=== PATIENT | female | born 1960 | race Caucasian/White ===

== ENCOUNTER 2016-10-14 09:59 | Inpatient (IN) | payer OTHER ==
[~2016-10-14] VITALS: Ht 154.9 cm; Wt 63.5 kg
[~2016-10-14 09:59] MED LIST: AMOX500C25 PO; CLAR500T3 PO; FERR325E14 PO; METF500T2 PO; OMEP40EC1 PO; PANT40EC PO; PRED5TAB7 PO; TRAM50TA94 PO
--- NOTE | 2016-10-14 10:19 | NUR ---
Dr. Crow evaluating patient at bedside.
--- NOTE | 2016-10-14 10:19 | NUR ---
Patient ambulated to bed 7 with family. RN evaluating patient at bedside.
--- NOTE | 2016-10-14 10:23 | NUR ---
55/F bib for evaluation of vomiting blood and bloody stools since last night. Pt states she had x2 episodes of solid stool with blood and diarrhea afterwards during the night. Pt states she was seen by PMD 09/29 and had routine labs drawn, saw her RA specialist and he told her "blood levels were low and had an infection." Pt is here today d/t blood in stool and vomiting blood. Afebile, c/o fever last night. AOX4, prydeinig speaking, ambulatory with steady gait. VSS.
[2016-10-14 10:26] VITALS: BP 134/81
[2016-10-14] MEDS ORDERED: NACL 0.9% 1,000 ML IV ONE ×3 (10:29→11:35)
[2016-10-14] MEDS ORDERED: METF850T PO (10:31)
--- NOTE | 2016-10-14 10:35 | NUR ---
Dr. Crow at bedside for rectal exam. Accompanied by nurse.
[2016-10-14 11:01] LABS: BASOPHILS % (AUTO) 0.3 % (0.0-2.0); EOSINOPHILS # (AUTO) 0.2 K/uL (0-0.4); EOSINOPHILS % (AUTO) 1.8 % (0.0-4.0); HEMATOCRIT 41.4 % (36-48); HEMOGLOBIN 13.6 g/dL (12.0-16.0); LYMPHOCYTES # (AUTO) 0.7 K/uL (2.5-16.5); LYMPHOCYTES % (AUTO) 5.9 % (20.5-51.1); MEAN CORPUSCULAR HEMOGLOBIN 28 pg (27-31); MEAN CORPUSCULAR HGB CONC 33 g/dL (33-37); MEAN CORPUSCULAR VOLUME 84 fL (80-94); MONOCYTES # (AUTO) 0.3 K/uL (0.8-1.0); MONOCYTES % (AUTO) 2.8 % (1.7-9.3); NEUTROPHILS # (AUTO) 10.8 K/uL (1.8-7.7); NEUTROPHILS % (AUTO) 89.2 % (42.2-75.2); PLATELET COUNT (AUTO) 85 K/uL (140-450); RED CELL DISTRIBUTION WIDTH 12.7 % (11.6-13.7); WHITE BLOOD COUNT (AUTO) 11.9 K/uL (4.8-10.8)
--- NOTE | 2016-10-14 11:01 | NUR ---
Patient appears to be resting comfortably in bed. VSS.
[2016-10-14 11:11] LABS: ANION GAP 16.2 (8-16); CALCIUM 8.9 mg/dL (8.5-10.1); CARBON DIOXIDE 24.7 mmol/L (21-32); CREATININE 0.9 mg/dL (0.6-1.3); POTASSIUM 3.9 mmol/L (3.5-5.1)
[2016-10-14] MEDS ORDERED: PANTOPRAZOLE 80 MG in NACL 0.9% 100 ML IV STA (11:11)
[2016-10-14] MEDS ORDERED: MORPHINE SULFATE 4 MG/ML SYR IVP ONE (11:15)
[2016-10-14] MEDS ORDERED: ONDANSETRON 4 MG/2 ML VIAL IVP ONE (11:15)
[2016-10-14 11:17] LABS: INR 1.1 (0.8-1.2); PARTIAL THROMBOPLASTIN TIME 26.6 secs (22-35.6); PROTHROMBIN TIME 11.6 secs (10.8-13.4); TOTAL BILIRUBIN 0.5 mg/dL (0.0-1.0); TOTAL PROTEIN, SERUM 8.1 g/dL (6.4-8.2)
--- NOTE | 2016-10-14 11:20 | NUR ---
Pt ambulated to restroom to provide UA. Steady gait noted.
[2016-10-14] MEDS ORDERED: PANTOPRAZOLE 40 MG INJ VIAL IVP ONE (11:24)
--- NOTE | 2016-10-14 11:34 | NUR ---
Dr. Crow made aware of accu check 340. No orders for insulin received at this time. Verbal order for another liter of NS to be given.
[2016-10-14 11:41] LABS: APPEARANCE,URINE HAZY (CLEAR); BILIRUBIN,URINE NEGATIVE (NEGATIVE); BLOOD, URINE TRACE-I (NEGATIVE); COLOR,URINE ORANGE (YELLOW); LEUKOCYTE ESTERASE ,URINE NEGATIVE (NEGATIVE); NITRITE, URINE NEGATIVE (NEGATIVE); PROTEIN,URINE TRACE (NEGATIVE); UGLUCOSE 3+ (NEGATIVE); UROBILINOGEN,URINE 0.2 EU/dL (0.2 - 1)
[2016-10-14 11:48] LABS: RBC,URINE 0-3 /HPF (0-5); WBC,URINE 0-3 /HPF (0-5)
--- NOTE | 2016-10-14 11:48 | NUR ---
patient medicated for nausea and epigastric pain. at bedside. monitored
[2016-10-14 11:49] LABS: BACTERIA,URINE OCCASSIONAL /HPF (None Seen)
[2016-10-14] MEDS ORDERED: NACL 0.9% 1,000 ML IV SCH (11:52)
[2016-10-14] MEDS ORDERED: HYDROcodone/APAP 7.5/325 MG 1 TAB PO PRN (11:55)
[2016-10-14] MEDS ORDERED: DOCUSATE SODIUM 100 MG GELCAP PO PRN (11:55)
[2016-10-14] MEDS ORDERED: ONDANSETRON 4 MG/2 ML VIAL IM/IVP PRN (11:55)
[2016-10-14] MEDS ORDERED: MORPHINE SULFATE 2 MG/ML SYR IVP PRN (11:55)
--- NOTE | 2016-10-14 12:05 | NUR ---
X-Ray at bedside.
--- NOTE | 2016-10-14 12:28 | NUR ---
Patient will be admitted to care of Dr. Madison. Admited to Tele. Will go to room 119-B. Belongings list completed. Report to Carmelina MCKNIGHT.
--- NOTE | 2016-10-14 12:34 | NUR ---
Pt transferred to Tele 119-B via [facility] on cardiac monitoring accompanied by myself and EMT Jennie. All belongings given to . VSS.
[2016-10-14 12:41] LABS: AMPHETAMINE, URINE NEG. ng/ml (NEG <=1000); BARBITURATE, URINE NEG. ng/ml (NEG <=200); BENZODIAZEPINE, URINE NEG. ng/mL (NEG <=200); CANNABINOID, URINE NEG. ng/mL (NEG <=50); COCAINE, URINE NEG. ng/mL (NEG <=300); OPIATE, URINE NEG. ng/mL (NEG <=2000); PHENCYCLIDINE SCREEN,URINE NEG. ng/mL (NEG <=25)
[2016-10-14] MEDS ORDERED: DEXTROSE 50% 50 ML SYR IVP PRN (12:45)
[2016-10-14 12:48] LABS: CHOL/HDL RATIO 3.7 (1-4.5); FREE T4 (FREE THYROXINE) 1.18 ng/dL (0.76-1.46); MAGNESIUM 1.9 mg/dL (1.8-2.4); PHOSPHORUS 2.9 mg/dL (2.5-4.9); THYROID STIMULATING HORMONE 0.39 uIU/mL (0.34-3.74)
[2016-10-14 13:00] VITALS: BP 120/70
--- NOTE | 2016-10-14 13:00 | NUR ---
RECEIVED PT ON FLOOR VIA GURNEY, PT IS A/OX4, AMBULATORY, SKIN IS INTACT, IV IS ON THE LEFT AC, PATENT, INTACT, FLUSHING WELL, NO S/S OF RESPIRATORY DISTRESS OR DISCOMFORT NOTED, SAFETY/FALL PRECAUTIONS ARE IN PLACE, ORIENTED PT TO ROOM, DISCUSSED PLAN OF CARE WITH PT, PT VERBALIZED UNDERSTANDING, PT'S IS AT BEDSIDE, CALL LIGHT IS WITHIN REACH, CALL LIGHT WITHIN REACH.
[2016-10-14] MEDS: DEXT 5% / NACL 0.9% 1,000 ML IV SCH ×2 (13:40→23:40)
--- NOTE | 2016-10-14 15:10 | NUR ---
PT RESTING IN BED IN A SEMI SHUKLA POSITION, IS AT BEDSIDE, CALL LIGHT IS WITHIN REACH.
[2016-10-14 16:00] VITALS: BP 120/66
[2016-10-14] MEDS: BLOOD GLUCOSE MONITORING 1 DEV DEV FS SCH ×2 (16:59→21:38)
--- NOTE | 2016-10-14 17:00 | NUR ---
PT RESTING IN BED, NO S/S OF RESPIRATORY DISTRESS OR DISCOMFORT NOTED, DAUGHTER IS AT BEDSIDE, CALL LIGHT WITHIN REACH.
[2016-10-14] MEDS: INSULIN LISPRO SLIDING SCALE 100 UNITS/ML VIAL SUBQ PRN (17:44)
--- NOTE | 2016-10-14 19:10 | NUR ---
PT ENDORSED TO JUAN LUIS OVALLE FOR CONTINUITY OF CARE, PT STABLE AT THIS TIME. DR. SHAFFER IS AT PT BEDSIDE TALKING WITH PT.
--- NOTE | 2016-10-14 19:15 | NUR ---
WILL CONTINUE WITH PATIENT CARE AT THIS TIME.
[2016-10-14 20:00] VITALS: BP 130/68
[2016-10-14] MEDS: INSULIN DETEMIR 100 UNITS/ML 10 ML VIAL SUBQ SCH (21:00)
--- NOTE | 2016-10-14 21:15 | NUR ---
PT IS SITTING IN BED, FAMILY IS AT BEDSIDE, CALL LIGHT IS WITHIN REACH.
--- NOTE | 2016-10-14 23:12 | NUR ---
REPORT GIVEN TO CHARGE NURSE FOR CONTINUITY OF CARE, PT STABLE AT THIS TIME.
--- NOTE | 2016-10-14 23:12 | NUR ---
RECEIVED REPORT FROM JUAN LUIS ALEXANDER FOR CONTINUITY PF CARE.
[2016-10-15] VITALS: BP 105/40
--- NOTE | 2016-10-15 | NUR ---
V/S TAKEN PT HAS A TEMP OF 100.5 WILL MEDICATE WITH TYLENOL. COOLING MEASURES APPLIED TO BILAT AXILLARY. WILL CONTINUEUE TO MONITOR.
[2016-10-15] MEDS: ACETAMINOPHEN 325 MG TAB PO PRN ×2 (00:35→13:02)
--- NOTE | 2016-10-15 00:35 | NUR ---
MEDICATED WITH TYLENOL 650 MG PO WITH SIPS OF WATER.
--- NOTE | 2016-10-15 02:00 | NUR ---
RECHECKED TEMP 99.5 AFTER COOLING MEASURE AND TYLENOL
[2016-10-15 04:00] VITALS: BP 100/56
--- NOTE | 2016-10-15 04:00 | NUR ---
V/S TAKEN TEMP 99, NO C/O PAIN,REINFORCED NPO STATUS
--- NOTE | 2016-10-15 06:00 | NUR ---
SEQUENTIAL STOCKINGS NOT APPLIED DUE TO PT AMBULATES TO BR.
[2016-10-15] MEDS: BLOOD GLUCOSE MONITORING 1 DEV DEV FS SCH ×4 (06:28→20:31)
--- NOTE | 2016-10-15 06:30 | NUR ---
BS 179 NOT COVERED DUE TO PT IS NPO FOR EGD THIS MORNING.
[2016-10-15 06:56] LABS: BASOPHILS # (AUTO) 0.1 K/uL (0.00-0.22); BASOPHILS % (AUTO) 1.1 % (0.0-2.0); EOSINOPHILS % (AUTO) 0.6 % (0.0-4.0); HEMATOCRIT 36.5 % (36-48); HEMOGLOBIN 11.8 g/dL (12.0-16.0); LYMPHOCYTES # (AUTO) 1.6 K/uL (2.5-16.5); LYMPHOCYTES % (AUTO) 24.4 % (20.5-51.1); MEAN CORPUSCULAR HEMOGLOBIN 27 pg (27-31); MEAN CORPUSCULAR HGB CONC 32 g/dL (33-37); MEAN CORPUSCULAR VOLUME 84 fL (80-94); MONOCYTES # (AUTO) 0.6 K/uL (0.8-1.0); MONOCYTES % (AUTO) 8.7 % (1.7-9.3); NEUTROPHILS # (AUTO) 4.3 K/uL (1.8-7.7); NEUTROPHILS % (AUTO) 65.2 % (42.2-75.2); PLATELET COUNT (AUTO) 93 K/uL (140-450); RED BLOOD CELL COUNT(AUTO) 4.33 MIL/uL (4.20-5.40); RED CELL DISTRIBUTION WIDTH 12.6 % (11.6-13.7); WHITE BLOOD COUNT (AUTO) 6.6 K/uL (4.8-10.8)
--- NOTE | 2016-10-15 07:10 | NUR ---
RECEIVED REPORT FROM DALI, CHARGE NURSE, PT IS A/OX4, AMBULATORY, SKIN IS INTACT, IV IS ON THE LEFT AC, PATENT, INTACT, FLUSHING WELL, NO S/S OF RESPIRATORY DISTRESS OR DISCOMFORT NOTED, SAFETY/FALL PRECAUTIONS ARE IN PLACE, DISCUSSED PLAN OF CARE WITH PT, PT VERBALIZED UNDERSTANDING, CALL LIGHT IS WITHIN REACH, CALL LIGHT WITHIN REACH.
[2016-10-15 07:17] LABS: ANION GAP 10.3 (8-16); CALCIUM 7.4 mg/dL (8.5-10.1); CARBON DIOXIDE 24.1 mmol/L (21-32); CREATININE 0.6 mg/dL (0.6-1.3); POTASSIUM 3.4 mmol/L (3.5-5.1)
[2016-10-15 07:23] LABS: MAGNESIUM 1.6 mg/dL (1.8-2.4); PHOSPHORUS 2.4 mg/dL (2.5-4.9)
[2016-10-15 08:00] VITALS: BP 120/64
[2016-10-15] MEDS: metFORMIN 850 MG TAB PO SCH ×2 (08:00→16:43)
--- NOTE | 2016-10-15 08:09 | NUR ---
REPORT GIVEN TO AM NURSE ALEXANDER
--- NOTE | 2016-10-15 09:01 | NUR ---
PT OFF UNIT TAKEN TO OR TO HAVE EGD DONE.
[2016-10-15] MEDS ORDERED: MIDAZOLAM 2 MG/2 ML VIAL ONE (09:13)
[2016-10-15] MEDS ORDERED: diphenhydrAMINE 50 MG/ML VIAL ONE (09:13)
[2016-10-15] MEDS ORDERED: fentaNYL 0.05 MG/ML VIAL ONE (09:13)
[2016-10-15 09:25] LABS: T4 (THYROXINE) 8.9 ug/dL (4.5-12.0)
[2016-10-15] MEDS: DEXT 5% / NACL 0.9% 1,000 ML IV SCH ×2 (09:40→19:51)
--- NOTE | 2016-10-15 09:42 | NUR ---
PT RETURNED FROM EGD PROCEDURE, PT IS A/OX4, NO S/S OF RESPIRATORY DISTRESS OR DISCOMFORT NOTED, VS ARE 98/56, HR: 83, O2:96%, RESP:16, TEMP: 98.6 CALL LIGHT WITHIN REACH, WILL CONTINUE TO MONITOR.
[2016-10-15] MEDS ORDERED: MIDAZOLAM 2 MG/2 ML VIAL IVP ONE (09:50)
[2016-10-15] MEDS ORDERED: fentaNYL 0.05 MG/ML VIAL IVP ONE (09:50)
[2016-10-15] MEDS ORDERED: SUCRALFATE 1 GM TAB PO SCH (10:10)
--- NOTE | 2016-10-15 11:31 | NUR ---
PATIENT HAS BEEN SCREENED AND CATEGORIZED MODERATE NUTRITION RISK. PATIENT WILL BE SEEN WITHIN 3-5 DAYS OF ADMISSION. 10/17/16 - 10/19/16 JORDAN ANTHONY MBA, RD
--- NOTE | 2016-10-15 11:35 | NUR ---
PT IS RESTING IN BED TALKING TO HER DAUGHTER WHO IS AT BEDSIDE, CALL LIGHT IS WITHIN REACH.
[2016-10-15 12:00] VITALS: BP 124/70
[2016-10-15] MEDS: INSULIN LISPRO SLIDING SCALE 100 UNITS/ML VIAL SUBQ PRN (12:41)
[2016-10-15] MEDS ORDERED: MAG SULF 2000 MG/WATER PREMIX 50 ML IV SCH (12:45)
--- NOTE | 2016-10-15 13:02 | NUR ---
PATIENT RESTING IN BED, PT COMPLAINED OF A HEADACHE 5/10, WILL MEDICATE AT THIS TIME.
[2016-10-15] MEDS ORDERED: POTASSIUM PHOSPHATE 15 MM in NACL 0.9% 250 ML IV SCH (15:00)
--- NOTE | 2016-10-15 15:00 | NUR ---
PT IS RESTING IN BED AT THIS TIME, DAUGHTER IS AT PATIENT BEDSIDE.
[2016-10-15 16:00] VITALS: BP 96/51
--- NOTE | 2016-10-15 16:30 | NUR ---
PT IS SLEEPING IN BED AT THIS TIME, PATIENT'S DAUGHTER IS AT BEDSIDE, CALL LIGHT WITHIN REACH.
[2016-10-15 16:56] LABS: HEMOGLOBIN A1C 7.2 % (4.8-5.6)
--- NOTE | 2016-10-15 18:42 | NUR ---
PT IS SITTING IN BED, FAMILY IS AT BEDSIDE, CALL LIGHT WITHIN REACH.
--- NOTE | 2016-10-15 19:25 | NUR ---
ENDORSED PT TO JUAN LUIS VARGAS. FOR CONTINUITY OF CARE, PT STABLE AT THIS TIME.
--- NOTE | 2016-10-15 19:30 | NUR ---
RECEIVED REPORT FROM DAY RN AT BEDSIDE, PATIENT IS AAO X4 ON O2 @1L VIA NC, NO SOB OR SIGN OF DISTRESS, IV PATENT AND INTACT, PT DENIES PAIN AT THIS TIME, SKIN INTACT, DISCUSSED PLAN OF CARE WITH PATIENT, PT VERBALIZED UNDERSTANDING, SAFETY MEASURES CHECKED, CALL LIGHT WITHIN REACH WILL CONTINUE TO MONITOR.
[2016-10-15 20:00] VITALS: BP 97/65
--- NOTE | 2016-10-15 20:30 | NUR ---
PT RESTING IN BED, PM MEDS ADMINISTERED, PT TOLERATED WELL, PT WANTED O2 OFF, REMOVED AND O2 SATS REMAINED AT 98% ON ROOM AIR, REMINDED PATIENT TO USE CALL LIGHT IF SHE FEELS SHORT OF BREATH, PT VERBALIZED UNDERSTANDING. CALL LIGHT WITH REACH. WILL CONTINUE TO MONITOR.
[2016-10-15] MEDS: SUCRALFATE 1 GM TAB PO SCH (20:31)
[2016-10-15] MEDS: PANTOPRAZOLE 40 MG TABEC PO SCH (20:31)
[2016-10-15] MEDS: INSULIN DETEMIR 100 UNITS/ML 10 ML VIAL SUBQ SCH (20:32)
--- NOTE | 2016-10-15 22:30 | NUR ---
PT RESTING IN BED, NO SIGN OF DISTRESS, CALL LIGHT WITHIN REACH. WILL CONTINUE TO MONITOR.
[2016-10-16] VITALS: BP 100/55
--- NOTE | 2016-10-16 | NUR ---
VITAL SIGNS STABLE, NO SIGN OF DISTRESS,CALL LIGHT WITHIN REACH. WILL CONTINUE TO MONITOR
--- NOTE | 2016-10-16 02:00 | NUR ---
PT SLEEPING, NO SIGN OF DISTRESS, CALL LIGHT WITHIN REACH. WILL CONTINUE TO MONITOR
[2016-10-16 04:00] VITALS: BP 112/61
--- NOTE | 2016-10-16 04:30 | NUR ---
VITAL SIGNS STABLE, NO SIGN OF DISTRESS CALL LIGHT WITHIN REACH. WILL CONTINUE TO MONITOR
[2016-10-16] MEDS: DEXT 5% / NACL 0.9% 1,000 ML IV SCH (05:48)
[2016-10-16 06:08] LABS: HEMATOCRIT 35.2 % (36-48); HEMOGLOBIN 11.6 g/dL (12.0-16.0); MEAN CORPUSCULAR HEMOGLOBIN 28 pg (27-31); MEAN CORPUSCULAR HGB CONC 33 g/dL (33-37); MEAN CORPUSCULAR VOLUME 84 fL (80-94); PLATELET COUNT (AUTO) 86 K/uL (140-450); RED BLOOD CELL COUNT(AUTO) 4.19 MIL/uL (4.20-5.40); RED CELL DISTRIBUTION WIDTH 12.6 % (11.6-13.7); WHITE BLOOD COUNT (AUTO) 4.2 K/uL (4.8-10.8)
[2016-10-16] MEDS: INSULIN LISPRO SLIDING SCALE 100 UNITS/ML VIAL SUBQ PRN (06:22)
[2016-10-16] MEDS: BLOOD GLUCOSE MONITORING 1 DEV DEV FS SCH ×2 (06:22→11:55)
[2016-10-16 06:27] LABS: ANION GAP 9.8 (8-16); CALCIUM 7.3 mg/dL (8.5-10.1); CREATININE 0.6 mg/dL (0.6-1.3); POTASSIUM 3.8 mmol/L (3.5-5.1)
[2016-10-16 06:32] LABS: MAGNESIUM 1.9 mg/dL (1.8-2.4); PHOSPHORUS 3.2 mg/dL (2.5-4.9)
[2016-10-16 07:02] LABS: BAND % (MANUAL) 3 % (0-8); EOSINOPHILS % (MANUAL) 1 % (0-4); LYMPHOCYTES % (MANUAL) 34 % (20-46); MONOCYTES % (MANUAL) 8 % (5-12); NEUTROPHILS % (MANUAL) 54 (43-65)
--- NOTE | 2016-10-16 07:20 | NUR ---
ENDORSED PATIENT TO DAY RN AT BEDSIDE, PATIENT IN STABLE CONDITION
--- NOTE | 2016-10-16 07:25 | NUR ---
RECEIVED REPORT FROM JUAN LUIS VARGAS, PT IS SITTING IN BED, A/OX4, AMBULATORY, SKIN IS INTACT, IV IS ON THE LEFT AC, PATENT, INTACT, FLUSHING WELL, NO S/S OF RESPIRATORY DISTRESS OR DISCOMFORT NOTED, SAFETY/FALL PRECAUTIONS ARE IN PLACE, DISCUSSED PLAN OF CARE WITH PT, PT VERBALIZED UNDERSTANDING, CALL LIGHT IS WITHIN REACH, CALL LIGHT WITHIN REACH.
[2016-10-16 08:00] VITALS: BP 99/54
[2016-10-16] MEDS: metFORMIN 850 MG TAB PO SCH (08:28)
[2016-10-16] MEDS: SUCRALFATE 1 GM TAB PO SCH (08:28)
--- NOTE | 2016-10-16 08:28 | NUR ---
DUE MEDICATIONS GIVEN, PT TOLERATED WELL, CALL LIGHT WITHIN REACH.
[2016-10-16] MEDS: PANTOPRAZOLE 40 MG TABEC PO SCH (08:29)
[2016-10-16] MEDS ORDERED: LACTULOSE 20 GM/30 ML UDC PO SCH (09:00)
--- NOTE | 2016-10-16 11:20 | NUR ---
PT IS RESTING IN BED WATCHING TV, DAUGHTER IS AT PT BEDSIDE, CALL LIGHT WITHIN REACH.
[2016-10-16 12:00] VITALS: BP 110/60
--- NOTE | 2016-10-16 13:30 | NUR ---
PT IS RESTING IN BED, NO S/S OF RESPIRATORY DISTRESS OR DISCOMFORT NOTED, CALL LIGHT WITHIN REACH.
[2016-10-16] MEDS ORDERED: BLOO1EAC40 MC (13:52)
[2016-10-16] MEDS ORDERED: SUCR1TAB35 PO (13:52)
[2016-10-16] MEDS ORDERED: LANC-947 MC (13:52)
[2016-10-16] MEDS ORDERED: METF850T PO (13:52)
[2016-10-16] MEDS ORDERED: BLOO1STR10 FS (13:52)
[2016-10-16] MEDS ORDERED: INSU-800 MC (13:52)
[2016-10-16] MEDS ORDERED: PANT40EC28 PO (13:52)
[2016-10-16] MEDS ORDERED: LEVEMIR SUBQ (13:52)
--- NOTE | 2016-10-16 15:30 | NUR ---
RESIDENT DOCTOR IN ROOM SPEAKING WITH PT DISCUSSING DISCHARGE INSTRUCTIONS.
--- NOTE | 2016-10-16 16:00 | NUR ---
DISCHARGE INSTRUCTIONS WERE GIVEN TO PT ON FOLLOW UP APPOINTMENTS AND MEDICATIONS SHE WILL NEED TO BE TAKING, ID WRIST BAND REMOVED, IV REMOVED, CATHETER TIP INTACT, PT STABLE UPON DISCHARGE ACCOMPANIED BY FAMILY.
--- NOTE | 2016-10-17 14:42 | NUR ---
CM NOTE RETRO REVIEW FAXED TO [facility] / FAX# [phone], ATTN: AUGUST #[phone]
== END 2016-10-16 16:00 | disposition home or self-care (01) | DRG 241 ==
LOC: MED 09:59 → MTU 11:52
PROVIDERS: ADMIT Family Medicine; ATTEND Family Medicine
PROC: 0DB68ZX Excision of Stomach, Via Natural or Artificial Opening Endoscopic, Diagnostic (ICD-10-PCS; principal; 2016-10-15 09:00)
DX: K25.4 Chronic or unspecified gastric ulcer with hemorrhage (principal); N17.0 Acute kidney failure with tubular necrosis; D69.3 Immune thrombocytopenic purpura; D69.6 Thrombocytopenia, unspecified; E11.65 Type 2 diabetes mellitus with hyperglycemia; E11.51 Type 2 diabetes mellitus with diabetic peripheral angiopathy without gangrene; E83.42 Hypomagnesemia; T37.0X5A Adverse effect of sulfonamides, initial encounter; T39.315A Adverse effect of propionic acid derivatives, initial encounter; E87.6 Hypokalemia; E83.39 Other disorders of phosphorus metabolism; K50.90 Crohn's disease, unspecified, without complications; D72.829 Elevated white blood cell count, unspecified; E66.9 Obesity, unspecified; M06.9 Rheumatoid arthritis, unspecified; Z87.11 Personal history of peptic ulcer disease; Z98.51 Tubal ligation status; Z56.0 Unemployment, unspecified; Z68.26 Body mass index [BMI] 26.0-26.9, adult
CPT/HCPCS: 36415; 71010; 80048; 80053; 80305; 81001; 82150; 82272; 82948; 83036; 83690; 83735; 83880; 84100; 84436; 84439; 84443; 84479; 85025; 85610; 85730; 86677; 86886; 86900; 86901; 87081; 93005; 93925; 93970; 96361; 96374; 96375; 99285; C9113; J1200; J1815; J2250; J2270; J2405; J3010; J3475; J7030; J7042; Q0092

== ENCOUNTER 2016-12-17 21:46 | Emergency (ER) | payer OTHER ==
[~2016-12-17] VITALS: Ht 154.9 cm; Wt 62.1 kg
[~2016-12-17 21:46] MED LIST changes: -AMOX500C25 PO; +BLOO1EAC40 MC; +BLOO1STR10 FS; -CLAR500T3 PO; -FERR325E14 PO; +INSU-800 MC; +LANC-947 MC; +LEVEMIR SUBQ; -METF500T2 PO; +METF850T PO; -OMEP40EC1 PO; -PANT40EC PO; +PANT40EC28 PO; -PRED5TAB7 PO; +SUCR1TAB56 PO; -TRAM50TA94 PO
[2016-12-17 21:48] VITALS: BP 133/79
--- NOTE | 2016-12-17 22:00 | NUR ---
AMBULATED TO ER BED 3
--- NOTE | 2016-12-17 22:03 | NUR ---
PATIENT PRESENTS TO ED WITH C/O NOSEBLEED . PT DENIES N/V/D; SKIN IS PINK/WARM/DRY; AAOX4 WITH EVEN AND STEADY GAIT; LUNGS CLEAR BL; HR EVEN AND REGULAR; PT DENIES ANY FEVER, CP, SOB, OR COUGH AT THIS TIME; PATIENT STATES PAIN OF 0/10 AT THIS TIME; VSS; PATIENT POSITIONED FOR COMFORT; HOB ELEVATED; BEDRAILS UP X2; BED DOWN. ER MD MADE AWARE OF PT STATUS.
--- NOTE | 2016-12-17 22:06 | NUR ---
Patient being evaluated by physician at bedside.
--- NOTE | 2016-12-17 22:08 | NUR ---
DR MACKAY PLACE NASAL TRUMPET IN RT NARE. PT TOLERATED WELL.
[2016-12-17 22:29] VITALS: BP 127/78
== END 2016-12-17 22:29 | disposition home or self-care (01) ==
LOC: MED 21:46
DX: R04.0 Epistaxis (principal); E11.9 Type 2 diabetes mellitus without complications; I10 Essential (primary) hypertension; Z79.899 Other long term (current) drug therapy; Z79.84 Long term (current) use of oral hypoglycemic drugs
CPT/HCPCS: 30901; 99284

== ENCOUNTER 2016-12-20 19:12 | Inpatient (IN) | payer OTHER ==
[~2016-12-20] VITALS: Ht 154.9 cm; Wt 62.1 kg
[2016-12-20 19:43] VITALS: BP 121/77
--- NOTE | 2016-12-20 20:52 | NUR ---
PT TAKEN TO BED 6
--- NOTE | 2016-12-20 21:08 | NUR ---
Dr. Pratt evaluating patient at bedside.
--- NOTE | 2016-12-20 21:11 | NUR ---
56/F sent from PMD for evaluation of abnormal labs. Pt c/o epistaxis on Monday, 3 days ago and was seen by PMD Monday. Pt called for results today; platelet level of 6 and instructed to go to ER for further evaluation. Pt denies pain. Denies N/V/D. Denies s/s of UTI. Skin warm and dry, normal in color for ethnicity. AOX4, clear speech, vietnamese speaking. Pt placed in a gown, placed on sheep farm worker, pulse oximetry, and blood pressure monitoring. VSS. Placed in position of comfort. Warm blanket provided. All needs addressed. Family at bedside.
[2016-12-20 21:45] LABS: BASOPHILS # (AUTO) 0.4 K/uL (0.00-0.22); EOSINOPHILS # (AUTO) 0.2 K/uL (0-0.4); HEMATOCRIT 39.8 % (36-48); LYMPHOCYTES # (AUTO) 2.7 K/uL (2.5-16.5); MEAN CORPUSCULAR HEMOGLOBIN 27 pg (27-31); MEAN CORPUSCULAR HGB CONC 33 g/dL (33-37); MEAN CORPUSCULAR VOLUME 84 fL (80-94); MONOCYTES # (AUTO) 0.6 K/uL (0.8-1.0); NEUTROPHILS # (AUTO) 2.2 K/uL (1.8-7.7); RED BLOOD CELL COUNT(AUTO) 4.76 MIL/uL (4.20-5.40); RED CELL DISTRIBUTION WIDTH 12.3 % (11.6-13.7); WHITE BLOOD COUNT (AUTO) 6.1 K/uL (4.8-10.8)
[2016-12-20 21:51] LABS: PLATELET COUNT (AUTO) 3 K/uL (140-450)
[2016-12-20 21:59] LABS: ANION GAP 10.8 (8-16); CARBON DIOXIDE 28.1 mmol/L (21-32); CREATININE 0.5 mg/dL (0.6-1.3); POTASSIUM 3.9 mmol/L (3.5-5.1)
[2016-12-20 22:04] LABS: ALBUMIN 4.2 g/dL (3.4-5.0); BILIRUBIN,DIRECT 0.1 mg/dL (0.0-0.3); TOTAL BILIRUBIN 0.3 mg/dL (0.0-1.0)
[2016-12-20 22:33] LABS: PROTHROMBIN TIME 10.8 secs (10.8-13.4)
[2016-12-20] MEDS ORDERED: MORPHINE SULFATE 2 MG/ML SYR IVP PRN (22:45)
[2016-12-20] MEDS ORDERED: DOCUSATE SODIUM 100 MG GELCAP PO PRN (22:45)
[2016-12-20] MEDS ORDERED: ACETAMINOPHEN 325 MG TAB PO PRN (22:45)
[2016-12-20] MEDS: NACL 0.9% 1,000 ML IV SCH (22:45)
[2016-12-20] MEDS ORDERED: HYDROcodone/APAP 7.5/325 MG 1 TAB PO PRN (22:45)
[2016-12-20] MEDS ORDERED: ONDANSETRON 4 MG/2 ML VIAL IM/IVP PRN (22:45)
[2016-12-20] MEDS ORDERED: OMEP20TC12 PO (22:46)
[2016-12-20] MEDS ORDERED: ADAL40KI1 SUBQ (22:46)
--- NOTE | 2016-12-20 22:58 | NUR ---
X-Ray at bedside.
--- NOTE | 2016-12-20 23:09 | NUR ---
Patient will be admitted to care of [facility]. Admited to Tele Will go to room 121-B. Belongings list completed. Report to Radha MCKNIGHT.
--- NOTE | 2016-12-20 23:15 | NUR ---
Pt transferred to Tele 121-B on cotton weigher operator via gurney accompanied by EMT Maribel and myself.
--- NOTE | 2016-12-20 23:20 | NUR ---
Admitted from ER TO TELEMETRY UNIT , with chief complaint of MD IN THE CLINIC TOLD HER PLATELET WENT DOWN , 56 y/o ,Female, Cooperative, AWAKE, A/O X4 GEORGIAN SPEAKING, OFFICE SERVICES CLERK ARTHUR, #[id number] ASSISTED IN INTERVIEWING PATIENT FOR ADMISSION. RESPIRATION EVEN AND UNLABORED. IV SALINE LOCK AT THE LEFT HAND G20, PATENT AND INTACT. HEAD TO TO ASSESSMENT DONE WITH CHARGE NURSE DALI, SKIN INTACT. NOTED 2ND TOE OF THE RIGHT AND LEFT FOOT, TOE NAILS WERE CUT VERY SHORT, NOTED SMALL AMOUNT OF DRIED BLOOD ON BOTH TOES. ADVISED PATIENT NOT TO CUT TOE NAILS VERY SHORT BECAUSE SHE IS DIABETIC. PLAN OF CARE DISCUSSED WITH PATIENT AND DAUGHTER. VERBALIZED UNDERSTANDING. DENIES PAIN 0/10. SR ON TELE MONITORING.oriented to call light, bed, phone,television, bathroom, smoking policy,visiting hours, procedures, ID bracelet on. Belongings list checked.
[2016-12-20] MEDS ORDERED: DEXTROSE 50% 50 ML SYR IVP PRN (23:25)
[2016-12-20 23:30] LABS: APPEARANCE,URINE CLEAR (CLEAR); BILIRUBIN,URINE NEGATIVE (NEGATIVE); BLOOD, URINE NEGATIVE (NEGATIVE); COLOR,URINE YELLOW (YELLOW); LEUKOCYTE ESTERASE ,URINE TRACE (NEGATIVE); NITRITE, URINE NEGATIVE (NEGATIVE); UGLUCOSE NEGATIVE (NEGATIVE)
[2016-12-20 23:36] LABS: BARBITURATE, URINE NEG. ng/ml (NEG <=200); BENZODIAZEPINE, URINE NEG. ng/mL (NEG <=200); CANNABINOID, URINE NEG. ng/mL (NEG <=50); COCAINE, URINE NEG. ng/mL (NEG <=300); OPIATE, URINE NEG. ng/mL (NEG <=2000); PHENCYCLIDINE SCREEN,URINE NEG. ng/mL (NEG <=25)
[2016-12-20 23:55] LABS: RBC,URINE 0-5 (RARE) /HPF (0-5); WBC,URINE 0-5 (RARE) /HPF (0-5)
[2016-12-20 23:58] LABS: CHOL/HDL RATIO 5.7 (1-4.5); PHOSPHORUS 4.3 mg/dL (2.5-4.9); THYROID STIMULATING HORMONE 3.92 uIU/mL (0.34-3.74)
[2016-12-21] VITALS: BP 129/73
--- NOTE | 2016-12-21 00:19 | NUR ---
Patient's Plan of Care was discussed and reviewed with MEDICAL BILLING SPECIALIST: JUAN C MCDONALD
--- NOTE | 2016-12-21 00:30 | NUR ---
PATIENT SIGNED CONSENT, ABLE TO UNDERSTAND BLOOD TRANSFUSION ADMINISTRATION PER EXPLAINED BY ARTHUR #[id number] DURING ADMISSION.
[2016-12-21] MEDS: NACL 0.9% 1,000 ML IV SCH ×2 (01:18→15:56)
[2016-12-21 04:00] VITALS: BP 125/69
--- NOTE | 2016-12-21 04:20 | NUR ---
PLATELETS LEVEL - 3, PHERESIS PLATELETS TRANSFUSION STARTED. WILL MONITOR FOR ANY ALLERGIC REACTION.
--- NOTE | 2016-12-21 05:30 | NUR ---
TRANSFUSION COMPLETED, NO ALLERGIC REACTION NOTED.
[2016-12-21] MEDS: BLOOD GLUCOSE MONITORING 1 DEV DEV FS SCH ×4 (06:14→21:43)
--- NOTE | 2016-12-21 07:02 | NUR ---
CONDITION REMAIN STABLE. WILL ENDORSE TO AM NURSE FOR CONTINUITY OF CARE.
--- NOTE | 2016-12-21 07:03 | NUR ---
RECEIVED REPORT FROM REFRACTORY REPAIRER NURSE AT BEDSIDE FOR CONTINUITY OF CARE. PT IS AWAKE AND ORIENTED. INTRODUCED SELF AND UPDATED BOARD. WILL CONTINUE CURRENT PLAN OF CARE AND MONITOR PT.
[2016-12-21 07:58] VITALS: BP 121/74
[2016-12-21] MEDS: LACTOBACILLUS RHAMNOSUS GG 1 EACH CAP PO SCH (08:44)
[2016-12-21] MEDS ORDERED: metFORMIN 850 MG TAB PO SCH (08:58)
[2016-12-21] MEDS: SUCRALFATE 1 GM TAB PO SCH ×4 (09:13→21:43)
--- NOTE | 2016-12-21 09:22 | NUR ---
PATIENT HAS BEEN SCREENED AND CATEGORIZED HIGH NUTRITION RISK. PATIENT WILL BE SEEN WITHIN 1-2 DAYS OF ADMISSION. 12/21/16-12/22/[address]
[2016-12-21] MEDS ORDERED: DEXAMETHASONE 4 MG/ML VIAL IVP SCH (09:42)
[2016-12-21 10:07] LABS: BASOPHILS # (AUTO) 0.1 K/uL (0.00-0.22); EOSINOPHILS # (AUTO) 0.1 K/uL (0-0.4); EOSINOPHILS % (AUTO) 0.9 % (0.0-4.0); HEMATOCRIT 38.5 % (36-48); HEMOGLOBIN 12.7 g/dL (12.0-16.0); LYMPHOCYTES # (AUTO) 1.1 K/uL (2.5-16.5); LYMPHOCYTES % (AUTO) 16.4 % (20.5-51.1); MEAN CORPUSCULAR HEMOGLOBIN 28 pg (27-31); MEAN CORPUSCULAR HGB CONC 33 g/dL (33-37); MEAN CORPUSCULAR VOLUME 84 fL (80-94); MONOCYTES # (AUTO) 0.5 K/uL (0.8-1.0); MONOCYTES % (AUTO) 6.6 % (1.7-9.3); NEUTROPHILS % (AUTO) 74.1 % (42.2-75.2); RED BLOOD CELL COUNT(AUTO) 4.58 MIL/uL (4.20-5.40); RED CELL DISTRIBUTION WIDTH 12.3 % (11.6-13.7); WHITE BLOOD COUNT (AUTO) 6.8 K/uL (4.8-10.8)
[2016-12-21 10:18] LABS: PLATELET COUNT (AUTO) 8 K/uL (140-450)
--- NOTE | 2016-12-21 11:25 | NUR ---
12/21/16 RD INITIAL ASSESSMENT COMPLETED PLEASE REFER TO NUTRITION ASSESSMENT UNDER CARE ACTIVITY FOR ESTIMATED NUTRITIONAL NEEDS. 1. CONTINUE 60G CONSISTENT CARBOHYDRATE DIET 2. PROVIDE NUTRITION THERAPY EDUCATION NEEDED 3. RD TO FOLLOW-UP 5-7 DAYS, LOW RISK NICA EPREZ RD
--- NOTE | 2016-12-21 11:30 | NUR ---
CHECKED ON PT IN ROOM. DAUGHTER AT BEDSIDE. DR. HUERTAS CAME IN AND SAW PT. DISCUSSION OF CARE WAS MADE. PT AND DAUGHTER VERBALIZED UNDERSTANDING. PT HAS NO COMPLAINTS AT THIS TIME WILL CONTINUE TO MONITOR.
[2016-12-21 12:00] VITALS: BP 98/61
--- NOTE | 2016-12-21 13:55 | NUR ---
CM NOTE INITIAL REVIEW FAXED TO [facility] / FAX# [phone]
[2016-12-21 16:00] VITALS: BP 94/58
--- NOTE | 2016-12-21 16:55 | NUR ---
STARTED PLATELET TRANSFUSION. PRE-TRANSFUSION VS: TEMP 97.9 HR 78 RR 18 BP 94/58 O2 SAT 100% ON ROOM AIR. PT DENIES PAIN. PT'S DAUGHTER AT BEDSIDE AND TRANSLATED FOR PT OF TRANSFUSION. PT AND DAUGHTER VERBALIZED UNDERSTANDING. WILL MONITOR PT CLOSELY FOR REACTIONS.
[2016-12-21] MEDS: metFORMIN 850 MG TAB PO SCH (17:40)
[2016-12-21 18:16] LABS: BASOPHILS # (AUTO) 0.1 K/uL (0.00-0.22); BASOPHILS % (AUTO) 2.2 % (0.0-2.0); EOSINOPHILS % (AUTO) 0.3 % (0.0-4.0); HEMATOCRIT 40.4 % (36-48); HEMOGLOBIN 13.4 g/dL (12.0-16.0); LYMPHOCYTES # (AUTO) 0.6 K/uL (2.5-16.5); LYMPHOCYTES % (AUTO) 13.3 % (20.5-51.1); MEAN CORPUSCULAR HEMOGLOBIN 28 pg (27-31); MEAN CORPUSCULAR HGB CONC 33 g/dL (33-37); MEAN CORPUSCULAR VOLUME 84 fL (80-94); MONOCYTES # (AUTO) 0.1 K/uL (0.8-1.0); MONOCYTES % (AUTO) 1.2 % (1.7-9.3); NEUTROPHILS # (AUTO) 3.6 K/uL (1.8-7.7); RED BLOOD CELL COUNT(AUTO) 4.83 MIL/uL (4.20-5.40); RED CELL DISTRIBUTION WIDTH 12.3 % (11.6-13.7); WHITE BLOOD COUNT (AUTO) 4.4 K/uL (4.8-10.8)
[2016-12-21 18:21] LABS: PLATELET COUNT (AUTO) 19 K/uL (140-450)
--- NOTE | 2016-12-21 18:45 | NUR ---
PLATELET TRANSFUSION COMPLETED. NO REACTIONS. VS: WNL. PT DENIES PAIN. DAUGHTER IS AT BEDSIDE.
--- NOTE | 2016-12-21 19:15 | NUR ---
ENDORSED PT TO TRAINING OFFICER NURSE AT BEDSIDE FOR CONTINUITY OF CARE. PT IS AWAKE AND ORIENTED. DAUGHTER IS AT BEDSIDE AND TRANSLATED FOR PT. STABLE CONDITION.
--- NOTE | 2016-12-21 19:16 | NUR ---
RECD. RESTING IN BED, AWAKE, A/OX4, RESPIRATION EVEN AND UNLABORED. CONVERSING WITH FAMILY AT THE BEDSIDE. IV OF NS AT 60 ML/HR INFUSING, LEFT HAND G 20. SMILED AND STATED OK WHEN INQUIRED HOW SHE IS. DENIES PAIN 0/10.
--- NOTE | 2016-12-21 19:16 | NUR ---
Patient's Plan of Care was discussed and reviewed with TILE INSPECTOR: JUAN C MCDONALD
[2016-12-21 20:00] VITALS: BP 106/65
--- NOTE | 2016-12-21 21:40 | NUR ---
EXPLAINED EFFECT AND SIDE EFFECTS OF NEW MEDICATIONS ORDERED BY MD, CARAFPEYTON AND PROTONIX WITH HELP OF LEASE OPERATOR JOCELIN, #[id number]. ALSO OTHER PLAN OF CARE FOR THE SHIFT. PATIENT VERBALIZED UNDERSTANDING.
--- NOTE | 2016-12-21 21:45 | NUR ---
STATED DID NOT HAVE A GOOD SLEEP LAST NIGHT, AT 0400 ALREADY AWAKE AND UNABLE TO SLEEP, AT HOME SHE TAKES ATIVAN 1 MG. FOR SLEEP. WILL INFORM DR. HOOD, ON DUTY FOR THE NIGHT.
--- NOTE | 2016-12-21 21:45 | NUR ---
INFORMED RESIDENT ON DUTY PATIENT HAS ACCU CHECK BUT NO COVERAGE. WILL ORDER HUMALOG.
[2016-12-21] MEDS ORDERED: LORazepam 1 MG TAB PO PRN (22:05)
[2016-12-21] MEDS: INSULIN LISPRO SLIDING SCALE 100 UNITS/ML VIAL SUBQ PRN (22:21)
--- NOTE | 2016-12-21 22:45 | NUR ---
MEDICATED WITH ATIVAN 1 MG. PO ORDERED.
--- NOTE | 2016-12-21 23:45 | NUR ---
SLEEPING COMFORTABLY IN BED.
[2016-12-22] VITALS: BP 115/67
[2016-12-22 04:00] VITALS: BP 106/55
--- NOTE | 2016-12-22 04:00 | NUR ---
WOKE UP, WENT TO BR TO VOID, BACK TO BED AFTER VOIDING AND BACK TO SLEEP.
[2016-12-22] MEDS: BLOOD GLUCOSE MONITORING 1 DEV DEV FS SCH ×4 (06:18→21:04)
[2016-12-22 06:29] LABS: BASOPHILS # (AUTO) 0.2 K/uL (0.00-0.22); BASOPHILS % (AUTO) 2.4 % (0.0-2.0); EOSINOPHILS % (AUTO) 0.4 % (0.0-4.0); HEMATOCRIT 37.6 % (36-48); HEMOGLOBIN 12.4 g/dL (12.0-16.0); LYMPHOCYTES # (AUTO) 1.7 K/uL (2.5-16.5); LYMPHOCYTES % (AUTO) 19.7 % (20.5-51.1); MEAN CORPUSCULAR HEMOGLOBIN 28 pg (27-31); MEAN CORPUSCULAR HGB CONC 33 g/dL (33-37); MEAN CORPUSCULAR VOLUME 84 fL (80-94); MONOCYTES # (AUTO) 0.4 K/uL (0.8-1.0); MONOCYTES % (AUTO) 4.4 % (1.7-9.3); NEUTROPHILS # (AUTO) 6.1 K/uL (1.8-7.7); NEUTROPHILS % (AUTO) 73.1 % (42.2-75.2); RED CELL DISTRIBUTION WIDTH 12.3 % (11.6-13.7)
[2016-12-22 06:33] LABS: ANION GAP 15.6 (8-16); CARBON DIOXIDE 24.7 mmol/L (21-32); CREATININE 0.5 mg/dL (0.6-1.3); POTASSIUM 4.3 mmol/L (3.5-5.1)
[2016-12-22] MEDS: PANTOPRAZOLE 40 MG TABEC PO SCH (06:33)
[2016-12-22 06:35] LABS: MAGNESIUM 1.9 mg/dL (1.8-2.4); PHOSPHORUS 3.7 mg/dL (2.5-4.9)
--- NOTE | 2016-12-22 07:00 | NUR ---
CONDITION REMAIN STABLE. WILL ENDORSE TO AM NURSE FOR CONTINUITY OF CARE.
--- NOTE | 2016-12-22 07:01 | NUR ---
RECEIVED REPORT FROM BOILER ERECTOR NURSE AT BEDSIDE. PATIENT IS SITTING IN BED COMFORTABLY. NO ACUTE DISTRESS NOTED. IN STABLE CONDITION. AAOX4, DENIES ANY PAIN OR ANY DISCOMFORTS AT THIS TIME. RESPIRATIONS EVEN, UNLABORED, LUNGS CTA ON ALL LOBES, ON ROOM AIR. IV ON LEFT HAND INTACT, PATENT AND INFUSING. SKIN IS INTACT, ABDOMEN SOFT WITH NO DISTENTION. PLAN OF CARE REVIEWED WITH PATIENT, SAFETY MEASURES IN PLACE, BED RAILS UP X2, BED WHEELS LOCKED, CALL LIGHT WITHIN REACH. WILL CONTINUE TO MONITOR.
[2016-12-22 07:23] LABS: PLATELET COUNT (AUTO) 30 K/uL (140-450); WHITE BLOOD COUNT (AUTO) 8.4 K/uL (4.8-10.8)
[2016-12-22 08:00] VITALS: BP 126/85
[2016-12-22] MEDS: NACL 0.9% 1,000 ML IV SCH (08:05)
[2016-12-22 08:15] LABS: T4 (THYROXINE) 7.6 ug/dL (4.5-12.0)
[2016-12-22] MEDS: SUCRALFATE 1 GM TAB PO SCH ×4 (08:43→21:02)
[2016-12-22] MEDS: metFORMIN 850 MG TAB PO SCH ×2 (08:43→16:58)
[2016-12-22] MEDS: LACTOBACILLUS RHAMNOSUS GG 1 EACH CAP PO SCH (08:43)
[2016-12-22] MEDS ORDERED: cefTRIAXone 1,000 MG VIAL ONE (08:46)
[2016-12-22] MEDS ORDERED: predniSONE 20 MG TAB PO SCH (09:00)
--- NOTE | 2016-12-22 09:30 | NUR ---
PATIENT LYING IN BED COMFORTABLY. NO DISTRESS NOTED. RESPIRATIONS EVEN, UNLABORED, ON ROOM AIR. IV PATENT, INTACT AND INFUSING. DENIES ANY PAIN OR DISCOMFORTS AT THIS TIME. MEDICATIONS DUE GIVEN. SAFETY MEASURES IN PLACE, CALL LIGHT WITHIN REACH. WILL CONTINUE TO MONITOR.
--- NOTE | 2016-12-22 10:35 | NUR ---
DR HUERTAS (HEMATOLOGY) CALLED, PT CONDITION REPORTED ON THE PHONE, PT TO STAY ONE MORE DAY AND REPEAT LABS IN AM, PT TO TAKE PREDINISONE 70MG PO QD INSTEAD OF 40MG, TELEPHONE ORDER RECIEVED, WILL NOTIFY DR SANCHES.
--- NOTE | 2016-12-22 11:02 | NUR ---
CM NOTE CONCURRENT REVIEW FAXED TO [facility] / FAX# [phone] AUGUST [phone]
[2016-12-22 12:00] VITALS: BP 127/80
--- NOTE | 2016-12-22 12:30 | NUR ---
PATIENT SITTING IN BED WITH FAMILY MEMBER AT BEDSIDE. NO DISTRESS NOTED. RESPIRATIONS EVEN, UNLABORED, ON ROOM AIR. IV PATENT, INTACT AND INFUSING. DENIES ANY PAIN OR DISCOMFORTS AT THIS TIME. MEDICATIONS DUE GIVEN. SAFETY MEASURES IN PLACE, CALL LIGHT WITHIN REACH. WILL CONTINUE TO MONITOR.
[2016-12-22] MEDS: INSULIN LISPRO SLIDING SCALE 100 UNITS/ML VIAL SUBQ PRN ×3 (13:08→21:17)
--- NOTE | 2016-12-22 14:30 | NUR ---
PATIENT LYING IN BED TALKING TO FAMILY MEMBERS AT BEDSIDE. NO DISTRESS NOTED. RESPIRATIONS EVEN, UNLABORED, ON ROOM AIR. IV PATENT, INTACT AND INFUSING. DENIES ANY PAIN OR DISCOMFORTS AT THIS TIME. SAFETY MEASURES IN PLACE, CALL LIGHT WITHIN REACH. WILL CONTINUE TO MONITOR.
[2016-12-22 15:42] LABS: HEPATITIS A ANTIBODY IGM Negative (Negative); HEPATITIS B CORE AB TOTAL Negative (Negative); HEPATITIS B SURFACE AB Non Reactive (.); HEPATITIS B SURFACE ANTIGEN Negative (Negative)
[2016-12-22 16:00] VITALS: BP 104/64
--- NOTE | 2016-12-22 16:30 | NUR ---
PATIENT SITTING IN BED COMFORTABLY WATCHING TV. NO DISTRESS NOTED. RESPIRATIONS EVEN, UNLABORED, ON ROOM AIR. IV PATENT, INTACT AND INFUSING. DENIES ANY PAIN OR DISCOMFORTS AT THIS TIME. MEDICATIONS DUE GIVEN. SAFETY MEASURES IN PLACE, CALL LIGHT WITHIN REACH. WILL CONTINUE TO MONITOR.
--- NOTE | 2016-12-22 19:18 | NUR ---
REPORT GIVEN TO PARTS SALES MANAGER NURSE. PATIENT IN STABLE CONDITION.
--- NOTE | 2016-12-22 19:30 | NUR ---
RECEIVED REPORT FROM DAY RN AT BEDSIDE, PATIENT IS AAOX4 ON ROOM AIR, NO SOB OR SIGN OF DISTRESS AT THIS TIME. IV TO LEFT HAND PATENT AND INTACT. SKIN INTACT. PATIENT DENIES PAIN AT THIS TIME. DISCUSSED PLAN OF CARE WITH PATIENT, PT VERBALIZED UNDERSTANDING. CALL LIGHT WITHIN REACH. WILL CONTINUE TO MONITOR
[2016-12-22 20:00] VITALS: BP 121/68
--- NOTE | 2016-12-22 21:17 | NUR ---
PM MEDS ADMINISTERED, PATIENT TOLERATED WELL, SITTING UP IN BED, CALL LIGHT WITHIN REACH. WILL CONTINUE TO MONITOR
--- NOTE | 2016-12-22 22:53 | NUR ---
PATIENT SLEEPING, NO DISTRESS NOTED, CALL LIGHT WITHIN REACH. WILL CONTINUE TO MONITOR
[2016-12-23] VITALS: BP 104/65
--- NOTE | 2016-12-23 00:08 | NUR ---
VITAL SIGNS STABLE, NO DISTRESS NOTED, CALL LIGHT WITHIN REACH. WILL CONTINUE TO MONITOR
[2016-12-23] MEDS: NACL 0.9% 1,000 ML IV SCH ×2 (00:45→06:24)
--- NOTE | 2016-12-23 02:50 | NUR ---
PATIENT SLEEPING, NO DISTRESS NOTED, CALL LIGHT WITHIN REACH. WILL CONTINUE TO MONITOR
[2016-12-23 04:00] VITALS: BP 97/61
--- NOTE | 2016-12-23 04:15 | NUR ---
VITAL SIGNS STABLE, NO DISTRESS NOTED. CALL LIGHT WITHIN REACH. WILL CONTINUE TO MONITOR
[2016-12-23 06:05] LABS: BASOPHILS # (AUTO) 0.4 K/uL (0.00-0.22); EOSINOPHILS # (AUTO) 0.1 K/uL (0-0.4); EOSINOPHILS % (AUTO) 0.7 % (0.0-4.0); HEMATOCRIT 36.8 % (36-48); HEMOGLOBIN 12.3 g/dL (12.0-16.0); LYMPHOCYTES # (AUTO) 4.2 K/uL (2.5-16.5); LYMPHOCYTES % (AUTO) 39.5 % (20.5-51.1); MEAN CORPUSCULAR HEMOGLOBIN 28 pg (27-31); MEAN CORPUSCULAR HGB CONC 34 g/dL (33-37); MEAN CORPUSCULAR VOLUME 84 fL (80-94); MONOCYTES # (AUTO) 0.8 K/uL (0.8-1.0); MONOCYTES % (AUTO) 7.1 % (1.7-9.3); NEUTROPHILS # (AUTO) 5.2 K/uL (1.8-7.7); NEUTROPHILS % (AUTO) 48.7 % (42.2-75.2); RED CELL DISTRIBUTION WIDTH 12.3 % (11.6-13.7); WHITE BLOOD COUNT (AUTO) 10.7 K/uL (4.8-10.8)
[2016-12-23] MEDS: PANTOPRAZOLE 40 MG TABEC PO SCH (06:21)
[2016-12-23] MEDS: BLOOD GLUCOSE MONITORING 1 DEV DEV FS SCH ×2 (06:23→11:30)
--- NOTE | 2016-12-23 07:26 | NUR ---
ENDORSED PATIENT TO DAY RN AT BEDSIDE, PATIENT IN STABLE CONDITION
--- NOTE | 2016-12-23 07:27 | NUR ---
PATIENT LYING IN BED COMFORTABLY. NO DISTRESS NOTED. AAOX4, RESPIRATIONS EVEN, UNLABORED, ON ROOM AIR. DENIES ANY PAIN OR ANY DISCOMFORTS AT THIS TIME. LUNGS CTA ON ALL LOBES. IV ON LEFT HAND IS INTACT, PATENT, AND INFUSING WITHOUT ANY COMPLICATIONS. SKIN IS INTACT THROUGHOUT BODY. PLAN OF CARE REVIEWED WITH PATIENT. VERBALIZED UNDERSTANDING. SAFETY MEASURES IN PLACE, CALL LIGHT WITHIN REACH, BED RAILS UP X2, BED WHEELS LOCKED. WILL CONTINUE TO MONITOR.
[2016-12-23 07:48] LABS: PLATELET COUNT (AUTO) 40 K/uL (140-450)
[2016-12-23 08:00] VITALS: BP 139/80
--- NOTE | 2016-12-23 08:40 | NUR ---
PATIENT LYING IN BED COMFORTABLY. NO DISTRESS NOTED. RESPIRATORY EVEN, UNLABORED, ON ROOM AIR. DENIES ANY PAIN OR DISCOMFORTS AT THIS TIME. IV PATENT AND INFUSING. SKIN INTACT THROUGHOUT BODY. NO BLEEDING NOTED. MEDICATIONS DUE GIVEN. SAFETY MEASURES IN PLACE, CALL LIGHT WITHIN REACH. WILL CONTINUE TO MONITOR.
[2016-12-23] MEDS: SUCRALFATE 1 GM TAB PO SCH ×2 (08:43→12:39)
[2016-12-23] MEDS: LACTOBACILLUS RHAMNOSUS GG 1 EACH CAP PO SCH (08:43)
[2016-12-23] MEDS: metFORMIN 850 MG TAB PO SCH (08:44)
[2016-12-23] MEDS ORDERED: PREDNISONE PO SCH ×2 (09:00)
[2016-12-23] MEDS ORDERED: predniSONE 20 MG TAB PO SCH (09:00)
[2016-12-23] MEDS ORDERED: PRED10TA5 PO (10:52)
[2016-12-23 12:00] VITALS: BP 122/68
--- NOTE | 2016-12-23 12:20 | NUR ---
PATIENT LYING IN BED COMFORTABLY. NO DISTRESS NOTED. RESPIRATIONS EVEN, UNLABORED, ON ROOM AIR. NO COMPLAINTS OF PAIN AT THIS TIME. SKIN IS INTACT, NO BLEEDING NOTED. IV IS INTACT, PATENT AND INFUSING. SAFETY MEASURES IN PLACE, CALL LIGHT WITHIN REACH. WILL CONTINUE TO MONITOR.
--- NOTE | 2016-12-23 12:29 | NUR ---
CM NOTE CONCURRENT REVIEW FAXED TO [facility] / FAX# [phone] [place] [phone] Regulo SHAW WHO REQUESTED DISCHARGE SUMMARY TO BE FAXED TO PATIENT'S PCP [facility] FAX# [phone]. SPOKE WITH LAKSHMI OF [facility] PH# [phone] WHO CONFIRMED THAT THEY RECEIVED THE FAX.
[2016-12-23] MEDS: INSULIN LISPRO SLIDING SCALE 100 UNITS/ML VIAL SUBQ PRN (12:40)
--- NOTE | 2016-12-23 15:00 | NUR ---
PATIENT SITTING IN BED COMFORTABLY WITH DAUGHTER AT BEDSIDE. NO DISTRESS NOTED. IN STABLE CONDITION. PATIENT PREFERS TO HAVE DAUGHTER TRANSLATE DISCHARGE INFORMATION/INSTRUCTIONS TO HER RATHER THAN A INSTANT POTATO PROCESSING SUPERVISOR VIA PHONE. DISCHARGE INSTRUCTIONS, EDUCATION, AND FOLLOW-UP INFORMATION PROVIDED TO PATIENT/DAUGHTER. PATIENT/DAUGHTER VERBALIZED COMPLETE UNDERSTANDING. ALL QUESTIONS FROM PATIENT/DAUGHTER ANSWERED. IV REMOVED ON HER LEFT HAND WITH MINIMAL BLOOD AND LUMEN COMPLETELY INTACT. ID WRIST BANDS REMOVED, ALL PATIENT BELONGINGS IN A BAG WITH PATIENT. PATIENT IS AMBULATORY WITH STEADY GAIT, REFUSES WHEELCHAIR OUT TO LOBBY. ESCORTED PATIENT/DAUGHTER TO THE FRONT LOBBY. PATIENT DISCHARGED HOME VIA PRIVATE VEHICLE WITH DAUGHTER.
== END 2016-12-23 15:00 | disposition home or self-care (01) | DRG 661 ==
LOC: MED 19:12 → MTU 22:45
PROVIDERS: ADMIT Student in an Organized Health Care Education/Training Program; ATTEND Student in an Organized Health Care Education/Training Program
PROC: 30233R1 Transfusion of Nonautologous Platelets into Peripheral Vein, Percutaneous Approach (ICD-10-PCS; principal; 2016-12-21)
DX: D69.3 Immune thrombocytopenic purpura (principal); N17.0 Acute kidney failure with tubular necrosis; D68.59 Other primary thrombophilia; E11.65 Type 2 diabetes mellitus with hyperglycemia; E11.51 Type 2 diabetes mellitus with diabetic peripheral angiopathy without gangrene; H11.31 Conjunctival hemorrhage, right eye; M35.9 Systemic involvement of connective tissue, unspecified; M06.9 Rheumatoid arthritis, unspecified; R04.0 Epistaxis; E78.5 Hyperlipidemia, unspecified; N39.0 Urinary tract infection, site not specified; E02 Subclinical iodine-deficiency hypothyroidism; K27.9 Peptic ulcer, site unspecified, unspecified as acute or chronic, without hemorrhage or perforation; Z98.51 Tubal ligation status
CPT/HCPCS: 36415; 71010; 76700; 80048; 80076; 80305; 81001; 82150; 82272; 82607; 82746; 82948; 83036; 83690; 83735; 83880; 84100; 84436; 84439; 84443; 84479; 85025; 85610; 86702; 86704; 86706; 86708; 86709; 86803; 86886; 86900; 86901; 87081; 87340; 93970; 99285; J0696; J1100; J1815; J7030; J7060; J7512; P9035; Q0092